=== PATIENT | male | born 1995 | race African-American/Black ===

== ENCOUNTER 2018-06-12 16:58 | Emergency (ER) | payer MEDICAID, OTHER ==
[~2018-06-12] VITALS: Ht 172.7 cm; Wt 90.5 kg
[2018-06-12] MEDS ORDERED: KETOROLAC TROMETHAMINE 10 MG TABLET PO ONE (19:15)
[2018-06-12 19:35] VITALS: BP 139/77
== END 2018-06-12 19:38 | disposition home or self-care (01) ==
LOC: EMS 16:59
DX: K01.1 Impacted teeth (principal)